=== PATIENT | male | born 1940 | race Caucasian/White ===

== ENCOUNTER 2025-02-18 12:14 | Inpatient (IN) ==
--- NOTE | 2025-02-18 12:36 | Emergency Department Note ---
Impression & Plan Difficulty with speech ED Provider Note Name: DEEPTHI ERNST Age: 84 Sex: Male Arrives Via: Ambulance Informant: Patient, EMS, nursing staff, family ED Provider: Román Covarrubias MD Chief Complaint: Speech difficulty Impression: As per impressions above Medical Decision Makin-year-old pleasant gentleman arrives for evaluation of strokelike symptoms. He was on his way to being seen at an appointment here when he was noted to be having difficulty with speaking. Primarily word finding issues with a bit of slurred speech. On arrival patient initially was 0 symptoms. Throughout the course of his ER stay symptoms did seem to wax and wane a bit depending on his position. Given initial unclear onset but also the waxing and waning limited other symptoms I do not feel that TNKase would be indicated. This is further complicated by the fact that he is chronically on Xarelto and had actually not taken it last night though initially said that he was only missing today's dose. Fortunately workup is relatively unremarkable and I did obtain a CT angiography of the head and neck. It is somewhat unclear the exact etiology but I do believe he needs to come in for further stroke workup. I will note that on examination patient appears a bit on the dehydrated side and thus I felt that IV fluids were indicated. Given the concern for underlying possible stroke I did opt to give him aspirin 324 mg p.o. I will note that he has no evidence of difficulty with swallowing or breathing. Triage/Nursing Notes reviewed by Me Differential:Stroke, exhaustion, dehydration, TIA, seizure, infection, electrolyte imbalance, ICH, amongst many others Vital Signs: reviewed and remarkable for mildly hypertensive on arrival Interventions: Normal saline bolus, aspirin p.o. Labs:ED labs Reviewed by me and remarkable for no significant abnormalities Imaging:CT of the head without contrast as per my informal interpretation no intracranial hemorrhage or mass effect appreciated. CT angiography of the head and neck as per radiologist no acute occlusive disease appreciated. EKG:As per my interpretation. Indication strokelike symptoms. Atrial fibrillation at 77 bpm and a QTc of 434. There is no ectopy no ischemia. There are no previous EKGs for comparison. Cardiac/Tele Monitoring: Cardiac Monitoring: An Order was placed for continuous cardiac monitoring. The monitor shows a rate of 70 with a A-fib rhythm. Consults:discussed with hospital service who will further evaluate and manage. Plan: Disposition:Hospitalization. Condition: Fair History of Present Illness: 84-year-old gentleman arrives for evaluation of strokelike symptoms. Patient was being seen at audiology appointment this morning when he was having trouble finding words. Symptoms waxed and waned a bit. He was brought to the ER for further evaluation. Patient notes that he otherwise feels fine. He is noting that at times he has trouble finding the right words to say. Denies any other weakness. No falls, trauma, injuries. He is not having a headache neck pain visual changes. He has not been having any difficulty with breathing. He denies any current chest pain, palpitations, abdominal pain, urinary/bowel symptoms, leg swelling or other concerning signs or symptoms. No medications prior to arrival. Patient does have a history of A-fib. He is on Xarelto. He had his morning dose of Xarelto held as he was going to have a procedure but he has had his Xarelto otherwise every single day up until this morning. Past Medical History: Atrial fibrillation, anxiety, type 2 diabetes, GERD, BPH, hypertension Home Medications:See Below Allergies: Penicillin Vitals:Blood Pressure: 164/95, Pulse 81, RR 20, T 36.6C, O2 97% on RA Physical Exam: GENERAL: Patient is anxious appearing and in mild distress. RESPIRATORY: No dyspnea. Clear to auscultation and equal bilaterally. CARDIOVASCULAR: Irregular.No murmur appreciated. EXTREMITIES: Normal motion all extremities, no cyanosis, no edema. NEUROLOGIC: Alert and oriented. No focal neurologic deficits appreciated SKIN: No rash, no jaundice, no diaphoresis. PSYCH: Appropriate GCS: 15 ED Course: Times/Reassessments: Multiple repeat evaluations. Patient does seem to have waxing and waning difficulty with speech but it is almost positional in nature. He and family are comfortable with plan to stay in hospital for further workup and evaluation. Román Covarrubias MD Past Med/Surg History Problem List (Updated 02/20/25 @ 12:04 by Román Covarrubias MD) Difficulty with speech (Acute) TIA (transient ischemic attack) Valvular heart disease Dysarthria Medical History (Updated 02/20/25 @ 12:04 by Román Covarrubias MD) Anxiety Sensorineural hearing loss of both ears Degenerative joint disease BPH (benign prostatic hyperplasia) Constipation Infrarenal abdominal aortic aneurysm (AAA) without rupture Right bundle branch block Coronary artery calcification Mitral regurgitation Tricuspid regurgitation Atrial septal aneurysm Hypertension Atrial flutter Chronic atrial fibrillation Ascending aorta dilation Enlargement of abdominal aorta Aortic valve sclerosis Laryngopharyngeal reflux disease ROBBY on CPAP Dyslipidemia Type 2 diabetes mellitus Surgical History (Updated 02/18/25 @ 16:01 by SANFORD Frank) History of tonsillectomy History of cataract surgery History of colonoscopy Social History Smoking Status: Former smoker Hx Alcohol Use: No Hx Substance Use: No Preferred Language: Maltese Communication Ability: Effective Aerobics Teacher Required: No Beliefs That Will Affect Care: None Current Living Situation: Spouse Feels Safe at Home: Yes Assistive Devices: None Allergies Allergies Allergy/AdvReac Type Severity Reaction Status Date / Time adhesive tape Allergy Unknown Unknown Unverified 02/18/25 15:14 atorvastatin Allergy Unknown Unknown Unverified 02/18/25 15:14 Penicillins Allergy Unknown Unknown Unverified 02/18/25 15:14 Home Meds Home Medications Medication Instructions Recorded Confirmed Probiotic 1 cap PO DAILY 02/18/25 02/18/25 buspirone 5 mg tablet 5 mg PO BID 02/18/25 02/18/25 diltiazem HCl 240 mg capsule,24 240 mg PO DAILY 02/18/25 02/18/25 hr,extended release (Tiadylt ER) diphenhydramine 25 1 tab PO HS 02/18/25 02/18/25 mg-acetaminophen 500 mg tablet (Tylenol PM Extra Strength) dutasteride 0.5 mg capsule 0.5 mg PO DAILY 02/18/25 02/18/25 famotidine 40 mg tablet 40 mg PO HS 02/18/25 02/18/25 furosemide 20 mg tablet 20 mg PO BID 02/18/25 02/18/25 loratadine 10 mg tablet 10 mg PO DAILY 02/18/25 02/18/25 lorazepam 0.5 mg tablet 0.5 mg PO TID PRN Anxiety 02/18/25 02/18/25 melatonin 10 mg tablet 10 mg PO HS 02/18/25 02/18/25 metformin 500 mg tablet 500 mg PO BID 02/18/25 02/18/25 mirabegron 25 mg tablet,extended 25 mg PO DAILY 02/18/25 02/18/25 release 24 hr (Myrbetriq) omeprazole 40 mg capsule,delayed 40 mg PO BID 02/18/25 02/18/25 release polyethylene glycol 3350 17 17 g PO DAILY 02/18/25 02/18/25 gram/dose oral powder (Miralax) tamsulosin 0.4 mg capsule 0.4 mg PO DAILY 02/18/25 02/18/25 tobramycin 0.3 %-dexamethasone 0.1 0 drp OPL TID 02/18/25 02/18/25 % eye drops,suspension Previous Rx's Medication Instructions Recorded rivaroxaban 15 mg tablet (Xarelto) 15 mg PO DAILY@1600 #30 tabs 02/19/25 rosuvastatin 20 mg tablet 20 mg PO DAILY #30 tabs 02/19/25 Results & Data (ED) Vital Signs Vital Signs - 24 hr 02/18/25 12:28 Temperature 36.6 C Temperature Source Oral Pulse Rate 81 Respiratory Rate 20 Blood Pressure 164/95 H Blood Pressure Mean 118 Blood Pressure Position Sitting Pulse Oximetry 97 Oxygen Delivery Method Room Air Sepsis Recent Fever Within 48 Hours No Sepsis New/Unexplained Change in Mental Status No Sepsis Action Taken by Nursing No Action Required Laboratory Data 02/19/25 06:38 02/19/25 06:38 Lab Results 02/18/25 Range/Units 12:33 WBC 4.90 (4.8-10.8) K/ul RBC 3.81 L (4.70-6.10) M/uL Hgb 12.4 L (14.0-18.0) g/dl Hct 37.9 L (42.0-52.0) % MCV 99.5 (80.0-100.0) fL MCH 32.5 (25.0-34.0) pg MCHC 32.7 (32.0-36.0) g/dL RDW Std Deviation 45.3 (36.4-46.3) fL RDW Coeff of Kam 12.4 (11.5-14.5) % Plt Count 145 (130-400) K/uL MPV 9.8 (9.4-12.4) fL Immature Gran % (Auto) 0.4 % Neut % (Auto) 74.1 % Lymph % (Auto) 15.1 % [place] % (Auto) 9.6 % Eos % (Auto) 0.6 % Baso % (Auto) 0.2 % Neut # (Auto) 3.63 (1.40-6.50) K/uL Lymph # (Auto) 0.74 L (1.20-3.40) K/uL [place] # (Auto) 0.47 (0.11-0.59) K/uL Eos # (Auto) 0.03 (0.00-0.50) K/uL Baso # (Auto) 0.01 (0.00-0.20) K/uL Immature Gran # (Auto) 0.02 (0.01-0.20) K/uL PT 11.2 (9.0-12.0) Seconds INR 1.1 (0.9-1.1) APTT 27 (21-31) Seconds PTT Ratio 1.0 Sodium 140 (136-145) mmol/L Potassium 4.0 (3.5-5.1) mmol/L Chloride 102 (98-107) mmol/L Carbon Dioxide 30 (21-32) mmol/L Anion Gap 8 (3-11) BUN 21 (6-23) mg/dl Creatinine 1.23 (0.6-1.4) mg/dl Est Cr Clr Drug Dosing 48.2 ml/min eGFR 57.53 BUN/Creatinine Ratio 17.1 (10-20) Glucose 85 (70-99(Fasting)) mg/dl Calcium 9.4 (8.6-10.3) mg/dl Magnesium 2.0 (1.7-2.4) mg/dl Total Bilirubin 0.7 (0.2-1.0) mg/dl AST 14 (13-39) U/L ALT 9 (7-52) U/L Alkaline Phosphatase 69 (34-104) U/L Troponin I High Sens 6.4 (0-20) pg/ml Total Protein 6.8 (6.0-8.3) gm/dl Albumin 4.0 (3.4-5.0) gm/dl Globulin 2.8 (2.5-4.0) gm/dl Albumin/Globulin Ratio 1.4 (0.9-2) Administered Medications Discontinued Medications Acetaminophen (Acetaminophen 500 Mg Tab) 500 mg PO HS KEVIN Stop: 03/20/25 20:59 Last Admin: 02/18/25 20:14 Dose: 500 mg Documented By: DAVID Aspirin (Aspirin 81 Mg Chew) 324 mg PO NOW STA Stop: 02/18/25 14:05 Last Admin: 02/18/25 17:09 Dose: Not Given Documented By: negrito Aspirin (Aspirin 81 Mg Ectab) [facility] Stop: 03/21/25 08:59 Last Admin: 02/19/25 09:11 Dose: 81 mg Documented By: ROBBIE Buspirone HCl (Buspirone 5 Mg Tab) 5 mg PO BID [facility] Stop: 03/20/25 20:59 Last Admin: 02/19/25 09:11 Dose: 5 mg Documented By: Admin: 02/18/25 20:08 Dose: 5 mg Documented By: DAVID Diltiazem HCl (Diltiazem Hcl 240 Mg Capcr) 240 mg PO DAILY [facility] Stop: 03/21/25 08:59 Last Admin: 02/19/25 09:12 Dose: 240 mg Documented By: ROBBIE Diphenhydramine HCl (Diphenhydramine Capsule 25 Mg Cap) 25 mg PO [facility] Stop: 03/20/25 20:59 Last Admin: 02/18/25 20:08 Dose: 25 mg Documented By: DAVID Famotidine (Famotidine 40 Mg Tablet) 40 mg PO [facility] Stop: 03/20/25 20:59 Last Admin: 02/18/25 20:08 Dose: 40 mg Documented By: DAVID Finasteride (Finasteride 5 Mg Tab) 5 mg PO DAILY [facility]; Protocol Stop: 03/21/25 08:59 Last Admin: 02/19/25 09:12 Dose: 5 mg Documented By: ROBBIE Gadobutrol (Gadobutrol 65ml Vial) 9 ml IV ONCE ONE Stop: 02/19/25 00:47 Last Admin: 02/19/25 00:47 Dose: 9 ml Documented By: KYREE Sodium Chloride (Nss) 1,000 mls @ 999 mls/hr IV .Q1H1M ONE Stop: 02/18/25 13:35 Last Infusion: 02/18/25 16:04 Dose: Infused Documented By: negrito Admin: 02/18/25 12:52 Dose: 999 mls/hr Documented By: QGV Insulin Aspart (Insulin Aspart Per Unit Charge) 0 units SC ACHS [facility] Stop: 03/20/25 18:59 Last Admin: 02/19/25 12:58 Dose: Not Given Documented By: Admin: 02/19/25 09:11 Dose: Not Given Documented By: Admin: 02/18/25 21:01 Dose: Not Given Documented By: DAVID Co-signed By: KASSANDRA Admin: 02/18/25 19:41 Dose: Not Given Documented By: DAVID Co-signed By: KASSANDRA Ioversol (Optiray 320 125ml) 112 ml IV ONCE ONE Stop: 02/18/25 12:45 Last Admin: 02/18/25 12:44 Dose: 112 ml Documented By: KATY Lactobacillus Acidophilus (Advanced Probiotic 625 Mg Capsule) 1,250 mg PO DAILY [facility] Stop: 03/21/25 08:59 Last Admin: 02/19/25 09:12 Dose: 1,250 mg Documented By: ROBBIE Loratadine (Loratadine 10 Mg Tab) 10 mg PO DAILY [facility] Stop: 03/21/25 08:59 Last Admin: 02/19/25 09:12 Dose: 10 mg Documented By: ROBBIE Lorazepam (Lorazepam 0.5 Mg Tab) 0.5 mg PO TID PRN PRN Reason: Anxiety Stop: 03/20/25 18:45 Last Admin: 02/19/25 10:05 Dose: 0.5 mg Documented By: Admin: 02/18/25 21:31 Dose: 0.5 mg Documented By: DAVID Melatonin (Melatonin 3 Mg Tab) 9 mg PO HS [facility]; Protocol Stop: 03/20/25 20:59 Last Admin: 02/18/25 20:09 Dose: 9 mg Documented By: DAVID Pantoprazole Sodium (Pantoprazole 40 Mg Tab) 40 mg PO BID [facility]; Protocol Stop: 03/20/25 20:59 Last Admin: 02/19/25 09:12 Dose: 40 mg Documented By: Admin: 02/18/25 20:10 Dose: 40 mg Documented By: DAVID Polyethylene Glycol (Polyethylene (Miralax) 17 Gm Pack) 17 gm PO DAILY [facility] Stop: 03/21/25 08:59 Last Admin: 02/19/25 09:18 Dose: 17 gm Documented By: ROBBIE Rivaroxaban (Rivaroxaban 20 Mg Tab) 20 mg PO DAILY@1600 KEVIN Stop: 03/20/25 19:14 Last Admin: 02/18/25 20:08 Dose: 20 mg Documented By: DAVID Rosuvastatin Calcium (Rosuvastatin Calcium 10 Mg Tab) 10 mg PO DAILY [facility] Stop: 03/21/25 08:59 Last Admin: 02/19/25 09:12 Dose: 10 mg Documented By: ROBBIE Tamsulosin HCl (Tamsulosin Hcl 0.4 Mg Cap) 0.4 mg PO DAILY [facility] Stop: 03/21/25 08:59 Last Admin: 02/19/25 09:12 Dose: 0.4 mg Documented By: ROBBIE Vibegron (Vibegron 75 Mg Tab) 75 mg PO DAILY [facility]; Protocol Stop: 03/21/25 08:59 Last Admin: 02/19/25 09:12 Dose: 75 mg Documented By: ROBBIE Discharge Plan Visit Data Chief Complaint: TIA Symptoms ED Provider: Román Covarrubias Discharge Problem: Difficulty with speech Patient Disposition: Admitted As Inpatient Condition: Fair Discharge Instructions Interventions: ED Discharge Assessment Last Done: 02/18/25 18:13
[2025-02-18] MEDS: OPTIRAY 320 125ml IV ONE (12:44)
[2025-02-18] MEDS: SODIUM CHLORIDE 0.9% 1,000 ML IV ONE (12:52)
[2025-02-18 12:54] LABS: Hematocrit (blood only) 37.9 % (42.0-52.0); Hemoglobin 12.4 g/dl (14.0-18.0); Immature Granulocytes # (auto) 0.02 K/uL (0.01-0.20); Immature Granulocytes % (auto) 0.4 %; Mean Corpuscular Hemoglobin 32.5 pg (25.0-34.0); Mean Corpuscular Volume 99.5 fL (80.0-100.0); Platelet Count 145 K/uL (130-400); RDW Standard Deviation 45.3 fL (36.4-46.3); Red Blood Count 3.81 M/uL (4.70-6.10); White Blood Count 4.90 K/ul (4.8-10.8)
--- NOTE | 2025-02-18 12:58 | CT Scan Report ---
CT SCAN OF THE BRAIN WITHOUT IV CONTRAST CLINICAL HISTORY: Neuro deficit. Suspected acute stroke. COMPARISON STUDY: TECHNIQUE: Unenhanced axial CT scan of the brain was performed from the vertex to the skull base. A dose lowering technique was utilized adhering to the principles of ALARA. CT DOSE: FINDINGS: No intra or extra-axial mass lesions are visualized. There is no CT evidence of acute cortical infarc tion. [place]-white differentiation remains intact. There is no evidence of acute hemorrhage. There is n o hydrocephalus. There are mild atrophic changes. There are mild ventricular white matter hypodensiti es likely on a small vessel basis. Incidental note is made of mucosal thickening within the maxillary sinuses. Postsurgical changes are present involving the medial snyder of both maxillary sinuses. No calvarial fractures are visualized. IMPRESSION: No acute intracranial findings. ACT 112: Negative or not required by law. Electronically signed by: Eliezer Daily M.D. 02/18/2025 12:57 PM
--- NOTE | 2025-02-18 13:03 | CT Scan Report ---
CT ANGIOGRAM OF THE NECK CLINICAL HISTORY: Neurological deficit. Stroke like symptoms. COMPARISON STUDY: No priors TECHNIQUE: Following the IV administration of 112 of Optiray 320, CT angiogram of the neck was perfor med from the aortic arch to the skull base. Images are reviewed in the axial, sagittal, and coronal p lanes. 3-D MIPS images are created and assessed. IV contrast was administered without complication. A ll measurements were calculated based on NASCET criteria. A dose lowering technique was utilized adh ering to the principles of ALARA. CT DOSE: 1256.73 mGy.cm FINDINGS: Thoracic aorta: There is atherosclerotic calcification of the thoracic aorta. Visualized portions of the thoracic aorta are normal in caliber. The aortic arch demonstrates bovine variant anatomy. Right carotid arterial system: The right common carotid artery is widely patent, as are the right int ernal and external carotid arteries. Calcified plaque is noted in the carotid bulb. Left carotid arterial system: The left common carotid artery is widely patent, as are the left international marketing coordinator al and external carotid arteries. Calcified plaque is seen in the carotid bulb. Vertebral arteries: Widely patent bilaterally and codominant in the neck. Subclavian arteries: Patent bilaterally. Intracranial vasculature: The visualized intracranial vessels at the skull base are patent. Jugular veins: Patent bilaterally. Brain parenchyma: The visualized brain parenchyma the skull base is within normal limits. Lung apices: Emphysematous change is seen at the apices. The imaged upper lobe lung parenchyma otherw ise appears clear. Soft tissues: The visualized pharyngeal soft tissues are normal in appearance noting angiographic pha se technique. The oropharyngeal airway appears widely patent. The salivary and thyroid glands are nor mal in appearance. No cervical lymphadenopathy is seen. Skeletal structures: The skeletal structures are osteopenic. The visualized calvarium at the skull ba se appears intact. The imaged cervical spine is maintained noting multilevel spondylosis. Sinuses and mastoids: The visualized paranasal sinuses are clear. The mastoid air cells are well pneu matized. IMPRESSION: 1. Unremarkable CT angiogram of the neck. 2. Emphysema. ACT 112: Negative or not required by law. Electronically signed by: Storm Mckenna M.D. 02/18/2025 1:01 PM
--- NOTE | 2025-02-18 13:03 | CT Scan Report ---
CTA ANGIOGRAPHY OF THE HEAD CLINICAL HISTORY: neuro deficit, acute stroke suspected COMPARISON STUDY: No previous studies for comparison. TECHNIQUE: Helical axial images of the head were obtained following uneventful intravenous administr ation of 112 cc of Optiray. Sagittal and coronal reconstructions were viewed as well as maximal inten sity projections on an independent 3-D workstation. Automated exposure control was utilized for the study. A dose lowering technique was utilized adhering to the principles of ALARA. CT DOSE: FINDINGS: There are no lesion suspicious for aneurysm. There are no major intracranial branch occlusi ons. The dural venous sinuses appear patent. There is mucosal thickening within both maxillary sinuses. There are postsurgical changes of bilatera l medial antrectomies. IMPRESSION: 1. No evidence of aneurysm. No evidence of major intracranial branch occlusion. ACT 112: Negative or not required by law. Electronically signed by: Eliezer Daily M.D. 02/18/2025 1:01 PM
[2025-02-18 13:09] LABS: Alanine Aminotransferase 9.0 U/L (7-52); Albumin Globulin Ratio 1.4 (0.9-2); Albumin Level 4.0 gm/dl (3.4-5.0); Alkaline Phosphatase 69.0 U/L (34-104); Anion Gap 8.0 (3-11); Bilirubin,Total 0.7 mg/dl (0.2-1.0); Blood Urea Nitrogen 21.0 mg/dl (6-23); Calcium 9.4 mg/dl (8.6-10.3); Carbon Dioxide 30.0 mmol/L (21-32); Chloride 102.0 mmol/L (98-107); Creatinine Clr Calc Pharmacy 48.2 ml/min; Globulin 2.8 gm/dl (2.5-4.0); Glucose 85.0 mg/dl (70-99(Fasting)); Magnesium 2.0 mg/dl (1.7-2.4); Potassium 4.0 mmol/L (3.5-5.1); Sodium 140.0 mmol/L (136-145); Total Protein 6.8 gm/dl (6.0-8.3)
[2025-02-18 13:26] LABS: INR 1.1 (0.9-1.1); Partial Thromboplastin Time 27 Seconds (21-31); Prothrombin Time 11.2 Seconds (9.0-12.0)
--- NOTE | 2025-02-18 14:30 | History & Physical Report ---
Date of Service February 18, 2025 Assessment & Plan (1) Dysarthria: (2) Type 2 diabetes mellitus: (3) Valvular heart disease: (4) Dyslipidemia: (5) ROBBY on CPAP: (6) Laryngopharyngeal reflux disease: (7) Chronic atrial fibrillation: (8) Hypertension: (9) Infrarenal abdominal aortic aneurysm (AAA) without rupture: (10) BPH (benign prostatic hyperplasia): (11) Anxiety: Plan 84 year old male with PMH significant for type 2 diabetes, dyslipidemia, ROBBY on CPAP, laryngopharyngeal reflux disease, chronic a fib, valvular heart disease, enlargement of abdominal aorta, ascending aorta dilation, hypertension, BPH, constipation, and anxiety who presents to the ED on 02/18/2025 with slurred speech. Dysarthria Stroke vs TIA Patient presenting with dysarthria and expressive aphasia that is waxing/waning Head CT, head CTA, neck CTA all unremarkable Received ASA in ED MRI ordered Consult neurology: appreciate recs Obtain echo (TTE earlier this month revealed LVEF 60-64%, RV mod dilation, LA severe enlargement, RA mod enlargement, diastolic dysfunction, mild aortic valve sclerosis, mild MR, mild TR, mod CA, mild enlargement of aortic root and proximal ascending aorta) PT/OT/ST evals A1C and lipid panel in am Monitor on telemetry Type 2 diabetes Hold home metformin BSG ACHS and SSI while inpatient Chronic atrial fibrillation Rate controlled Continue Xarelto and diltiazem Hypertension Continue lasix Dyslipidemia Continue rosuvastatin ROBBY on CPAP CPAP HS Esophageal dysphagia LPRD Follows with [facility] Was supposed to have EGD with dilation at [facility] tomorrow-> will need rescheduled Continue PPI and pepcid AAA Follows with [facility] Stable under surveillance with yearly ultrasound BPH Continue dutasteride and tamsulosin Anxiety Continue buspirone and ativan PRN DVT Prophylaxis:on Xarelto Code Status: DNR/DNI - As per discussion at bedside with the patient. PCP: Shelbie Welch Disposition: admit to [facility] Patient seen in collaboration with Dr. Denis. Please see addendum. I spent a total of 70 minutes coordinating, documenting and providing care for this patient excluding time spent in the performance of separately billed ser vices or time spent by another provider/QHP. Admission and Anticipated Discharge Date Admission Date: February 18, 2025 History of Present Illness Chief Complaint: slurred speech Primary Care Provider: NO PCP 84 year old male with PMH significant for type 2 diabetes, dyslipidemia, ROBBY on CPAP, laryngopharyngeal reflux disease, chronic a fib, valvular heart disease, enlargement of abdominal aorta, ascending aorta dilation, hypertension, BPH, constipation, and anxiety who presents to the ED on 02/18/2025 with slurred speech. Patient reports that he was going to the [facility] this morning at 1100 to get new hearing aids when he suddenly felt off balance and "wobbly" getting out of the car. He was able to get through the appointment and then when he got up to leave, he had a similar sensation of off balance. Denies near syncope or syncope. He then developed dysarthria and slurred speech where he describes that he knows what he was trying to say but could not get the words out. [facility] and [facility] brought [facility] for evaluation. By the time he arrived to the ED, his speech normalized. He continues to have waxing and waning expressive aphasia for about 5-10 min at a time every 10-20 minutes. Patient feels completely fine otherwise. Denies headache, blurry vision, unilateral weakness, chest pain, SOB, abdominal pain, N/V/D. He notes that he did not take his Xarelto (for A fib) last evening because he is supposed to have an EGD with dilation tomorrow at [facility]. Allergies Allergy/AdvReac Type Severity Reaction Status Date / Time adhesive tape Allergy Unknown Unknown Unverified 02/18/25 15:14 atorvastatin Allergy Unknown Unknown Unverified 02/18/25 15:14 Penicillins Allergy Unknown Unknown Unverified 02/18/25 15:14 Home Medications Medication Instructions Recorded Confirmed Type Probiotic 1 cap PO DAILY 02/18/25 02/18/25 History buspirone 5 mg tablet 5 mg PO BID 02/18/25 02/18/25 History diltiazem HCl 240 mg capsule,24 240 mg PO DAILY 02/18/25 02/18/25 History hr,extended release (Tiadylt ER) diphenhydramine 25 1 tab PO HS 02/18/25 02/18/25 History mg-acetaminophen 500 mg tablet (Tylenol PM Extra Strength) dutasteride 0.5 mg capsule 0.5 mg PO DAILY 02/18/25 02/18/25 History famotidine 40 mg tablet 40 mg PO HS 02/18/25 02/18/25 History furosemide 20 mg tablet 20 mg PO BID 02/18/25 02/18/25 History loratadine 10 mg tablet 10 mg PO DAILY 02/18/25 02/18/25 History lorazepam 0.5 mg tablet 0.5 mg PO TID PRN Anxiety 02/18/25 02/18/25 History melatonin 10 mg tablet 10 mg PO HS 02/18/25 02/18/25 History metformin 500 mg tablet 500 mg PO BID 02/18/25 02/18/25 History mirabegron 25 mg tablet,extended 25 mg PO DAILY 02/18/25 02/18/25 History release 24 hr (Myrbetriq) omeprazole 40 mg capsule,delayed 40 mg PO BID 02/18/25 02/18/25 History release polyethylene glycol 3350 17 17 g PO DAILY 02/18/25 02/18/25 History gram/dose oral powder (Miralax) rivaroxaban 20 mg tablet (Xarelto) 20 mg PO DAILY 02/18/25 02/18/25 History rosuvastatin 5 mg tablet 10 mg PO DAILY 02/18/25 02/18/25 History tamsulosin 0.4 mg capsule 0.4 mg PO DAILY 02/18/25 02/18/25 History tobramycin 0.3 %-dexamethasone 0.1 0 drp OPL TID 02/18/25 02/18/25 History % eye drops,suspension Past Med/Surg History Problem List (Updated 02/18/25 @ 16:01 by SANFORD Frank) Valvular heart disease Dysarthria Medical History (Updated 02/18/25 @ 16:01 by SANFORD Frank) Anxiety Sensorineural hearing loss of both ears Degenerative joint disease BPH (benign prostatic hyperplasia) Constipation Infrarenal abdominal aortic aneurysm (AAA) without rupture Right bundle branch block Coronary artery calcification Mitral regurgitation Tricuspid regurgitation Atrial septal aneurysm Hypertension Atrial flutter Chronic atrial fibrillation Ascending aorta dilation Enlargement of abdominal aorta Aortic valve sclerosis Laryngopharyngeal reflux disease ROBBY on CPAP Dyslipidemia Type 2 diabetes mellitus Surgical History (Updated 02/18/25 @ 16:01 by SANFORD Frank) History of tonsillectomy History of cataract surgery History of colonoscopy Social History Smoking Status: Former smoker Preferred Language: Chinese Feels Safe at Home: Yes Review of Systems Review of Systems: All systems reviewed & are unremarkable except as noted in HPI & below Physical Exam Physical Exam: Refer to exam by Dr. Denis Results & Data Results & Data Vital Signs (Past 12 Hours) Vital Signs Temp Pulse Resp BP Pulse Ox O2 Del Method 02/18/25 13:36 75 02/18/25 12:28 36.6 C 81 20 164/95 H 97 Room Air Laboratory Results Short CBC 02/18/25 Range/Units 12:33 WBC 4.90 (4.8-10.8) K/ul Hgb 12.4 L (14.0-18.0) g/dl Hct 37.9 L (42.0-52.0) % Plt Count 145 (130-400) K/uL BMP 02/18/25 12:33 Sodium 140 Potassium 4.0 Chloride 102 Carbon Dioxide 30 BUN 21 Creatinine 1.23 Glucose 85 Calcium 9.4 Liver Function 02/18/25 Range/Units 12:33 Total Bilirubin 0.7 (0.2-1.0) mg/dl AST 14 (13-39) U/L ALT 9 (7-52) U/L Alkaline Phosphatase 69 (34-104) U/L Albumin 4.0 (3.4-5.0) gm/dl I have independently reviewed and interpreted patient's admitting labs including CBC, CMP, PTT, PT/INR, mag and troponin. Diagnostic Findings Head CT 02/18/25 12:35 CT SCAN OF THE BRAIN WITHOUT IV CONTRAST CLINICAL HISTORY: Neuro deficit. Suspected acute stroke. COMPARISON STUDY: TECHNIQUE: Unenhanced axial CT scan of the brain was performed from the vertex to the skull base. A dose lowering technique was utilized adhering to the principles of ALARA. CT DOSE: FINDINGS: No intra or extra-axial mass lesions are visualized. There is no CT evidence of acute cortical infarction. [place]-white differentiation remains intact. There is no evidence of acute hemorrhage. There is no hydrocephalus. There are mild atrophic changes. There are mild ventricular white matter hypodensities likely on a small vessel basis. Incidental note is made of mucosal thickening within the maxillary sinuses. Postsurgical changes are present involving the medial snyder of both maxillary sinuses. No calvarial fractures are visualized. IMPRESSION: No acute intracranial findings. ACT 112: Negative or not required by law. Electronically signed by: Eliezer Daily M.D. 02/18/2025 12:57 PM Head CTA 02/18/25 12:35 CTA ANGIOGRAPHY OF THE HEAD CLINICAL HISTORY: neuro deficit, acute stroke suspected COMPARISON STUDY: No previous studies for comparison. TECHNIQUE: Helical axial images of the head were obtained following uneventful intravenous administration of 112 cc of Optiray. Sagittal and coronal reconstructions were viewed as well as maximal intensity projections on an independent 3-D workstation. Automated exposure control was utilized for the study. A dose lowering technique was utilized adhering to the principles of ALARA. CT DOSE: FINDINGS: There are no lesion suspicious for aneurysm. There are no major intracranial branch occlusions. The dural venous sinuses appear patent. There is mucosal thickening within both maxillary sinuses. There are postsurgical changes of bilateral medial antrectomies. IMPRESSION: 1. No evidence of aneurysm. No evidence of major intracranial branch occlusion. ACT 112: Negative or not required by law. Electronically signed by: Eliezer Daily M.D. 02/18/2025 1:01 PM Neck CTA 02/18/25 12:35 CT ANGIOGRAM OF THE NECK CLINICAL HISTORY: Neurological deficit. Stroke like symptoms. COMPARISON STUDY: No priors TECHNIQUE: Following the IV administration of 112 of Optiray 320, CT angiogram of the neck was performed from the aortic arch to the skull base. Images are reviewed in the axial, sagittal, and coronal planes. 3-D MIPS images are created and assessed. IV contrast was administered without complication. All measurements were calculated based on NASCET criteria. A dose lowering technique was utilized adhering to the principles of ALARA. CT DOSE: 1256.73 mGy.cm FINDINGS: Thoracic aorta: There is atherosclerotic calcification of the thoracic aorta. Visualized portions of the thoracic aorta are normal in caliber. The aortic arch demonstrates bovine variant anatomy. Right carotid arterial system: The right common carotid artery is widely patent, as are the right internal and external carotid arteries. Calcified plaque is noted in the carotid bulb. Left carotid arterial system: The left common carotid artery is widely patent, as are the left internal and external carotid arteries. Calcified plaque is seen in the carotid bulb. Vertebral arteries: Widely patent bilaterally and codominant in the neck. Subclavian arteries: Patent bilaterally. Intracranial vasculature: The visualized intracranial vessels at the skull base are patent. Jugular veins: Patent bilaterally. Brain parenchyma: The visualized brain parenchyma the skull base is within normal limits. Lung apices: Emphysematous change is seen at the apices. The imaged upper lobe lung parenchyma otherwise appears clear. Soft tissues: The visualized pharyngeal soft tissues are normal in appearance noting angiographic phase technique. The oropharyngeal airway appears widely patent. The salivary and thyroid glands are normal in appearance. No cervical lymphadenopathy is seen. Skeletal structures: The skeletal structures are osteopenic. The visualized calvarium at the skull base appears intact. The imaged cervical spine is maintained noting multilevel spondylosis. Sinuses and mastoids: The visualized paranasal sinuses are clear. The mastoid air cells are well pneumatized. IMPRESSION: 1. Unremarkable CT angiogram of the neck. 2. Emphysema. ACT 112: Negative or not required by law. Electronically signed by: Storm Mckenna M.D. 02/18/2025 1:01 PM ECG Additional Comments: I have independently reviewed and interpreted patient's admitting EKG which revealed: A fib at a rate of 77bpm Code Status & VTE Plan Code Status DNR/DNI Supervising Physician Co-Signing Physician Notes Pt seen and examined by me, care coordinated w/ SANFORD Corral. pls refer to her note above for further detail. 84 yo M with type 2 diabetes, dyslipidemia, ROBBY, laryngopharyngeal reflux disease, chronic a fib, valvular heart disease, enlargement of abdominal aorta, hypertension, BPH, constipation, and anxiety who presents with slurred speech and feeling "wobbly" on and off. Patient reports that [facility] was [facility] to get new [facility] when he suddenly felt off balance and "wobbly" getting out of the car. He then developed dysarthria and slurred speech where he describes that he knows what he was trying to say but could not get the words out. By the time he arrived to the ED, his speech normalized. He continues to have waxing and waning expressive aphasia for about 5-10 min at a time every 10-20 minutes - per pt's son who is present at the bedside and helps provide the history. Patient feels well otherwise. Denies headache, blurry vision, any weakness, chest pain, SOB, abdominal pain, N/V/D. He notes that he did not take his Xarelto (for A fib) last evening because he is supposed to have an EGD with dilation tomorrow at [facility]. On our evaluation, pt is able to answer questions appropriately, he is awake, and alert. Heart sounds irregular. Lung sounds clear. Abdomen soft nontender. No LE edema, and pt is able to move all extremities without any difficulty or weakness noted. Pt denies any numbness or tingling. Cranial nerves checked at the bedside and intact. CT head, CTA head and neck obtained in ED and unremarkable. Pt received ASA in ED. Will resume xarelto, cont. home statin for now. Will obtain fasting panel, Hgb A1c. Will obtain brain MRI and will discuss further w/ neurology. MD Cira
[2025-02-18] MEDS: ASPIRIN 81 MG CHEW PO STA (17:09)
[2025-02-18] MEDS ORDERED: GLUCOSE 10 TAB/TUBE PO PRN (18:46)
[2025-02-18] MEDS ORDERED: GLUCOSE 40% GEL 15 GM TUBE PO PRN (18:46)
[2025-02-18] MEDS ORDERED: ONDANSETRON INJ 2 MG/ML 2 ML VIAL IV PRN (18:46)
[2025-02-18] MEDS ORDERED: DEXTROSE 50% 50 ML SYRINGE IV PRN (18:46)
[2025-02-18] MEDS ORDERED: CARBOHYDRATES FOR HYPOGLYCEMIA PO PRN (18:46)
[2025-02-18] MEDS ORDERED: ACETAMINOPHEN 325 MG TAB PO PRN (18:46)
[2025-02-18] MEDS ORDERED: GLUCAGON FOR INJ 1 MG VIAL SQ PRN (18:46)
[2025-02-18] MEDS ORDERED: PHARMACIST DISCHARGE MED REC CONSULT PRN (18:46)
[2025-02-18] MEDS: INSULIN ASPART PER UNIT CHARGE SC SCH (19:41)
[2025-02-18] MEDS: busPIRone 5 MG TAB PO SCH (20:08)
[2025-02-18] MEDS: RIVAROXABAN 20 MG TAB PO SCH (20:08)
[2025-02-18] MEDS: diphenhydrAMINE Capsule 25 MG CAP PO SCH (20:08)
[2025-02-18] MEDS: FAMOTIDINE 40 MG TABLET PO SCH (20:08)
[2025-02-18] MEDS: MELATONIN 3 MG TAB PO SCH (20:09)
[2025-02-18] MEDS: ACETAMINOPHEN 500 MG TAB PO SCH (20:14)
--- NOTE | 2025-02-18 21:01 | Electrocardiogram Report ---
Test Reason : Blood Pressure : */* mmHG Vent. Rate : 77 BPM Atrial Rate : * BPM P-R Int : * ms QRS Dur : 136 ms QT Int : 384 ms P-R-T Axes : * 73 5 degrees QTcB Int : 434 ms Atrial fibrillation Right bundle branch block Abnormal ECG No previous ECGs available Confirmed by Cleveland Jean ([id number]) on 02/18/2025 9:01:32 PM Referred By: Confirmed By: Cleveland Jean
[2025-02-18] MEDS: LORazepam 0.5 MG TAB PO PRN (21:31)
[2025-02-18] MEDS ORDERED: INFLUENZA VACC TS2025-26(65y+)/PF (IIV3) 0.5mL Syr IM ONE (22:53)
[2025-02-18] MEDS ORDERED: PNEUMOCOCCAL VACCINE (PCV20) 20-VAL CONJ-DIP CRM/PF 0.5 ML SYR IM ONE (22:53)
[2025-02-19] MEDS: GADOBUTROL 65ML VIAL IV ONE (00:47)
--- NOTE | 2025-02-19 01:57 | Magnetic Resonance Report ---
EXAM: MR brain wo/w con CLINICAL HISTORY: stroke s/s TECHNIQUE: Multisequential and multiplanar images of the brain were submitted for review without and with contrast. COMPARISON: None. FINDINGS: Generalized parenchymal atrophy is appreciated. No focal parenchymal lesions are seen. No intracranial hemorrhage, mass effect, midline shift, extra-axial collection, or hydrocephalus is identified. The ventricles, sulci, and basal cisterns are symmetric and normal in size and configuration. Diffusion-weighted sequences show no evidence of acute ischemic infarction. No abnormal meningeal enhancement is seen. The midline structures, including the pituitary gland, corpus callosum, pineal region, and brainstem, are unremarkable. The craniovertebral junction is within normal limits. No calvarial abnormalities are identified. Mild mucosal thickening of the bilateral maxillary and ethmoidal sinuses is noted. The orbital structures are unremarkable. Appropriate flow voids are present in the visualized intracranial vessels. No enhancing mass or abnormality seen. IMPRESSION: 1. No acute ischemia, space-occupying mass, or other acute intracranial pathology is demonstrated. 2. Age-related cerebral atrophy. Electronically signed by Anthony Trujillo 02-19-2025 01:56 AM
[2025-02-19 07:31] LABS: Hematocrit (blood only) 37.6 % (42.0-52.0); Hemoglobin 12.3 g/dl (14.0-18.0); Immature Granulocytes # (auto) 0.02 K/uL (0.01-0.20); Immature Granulocytes % (auto) 0.5 %; Mean Corpuscular Hemoglobin 32.5 pg (25.0-34.0); Mean Corpuscular Volume 99.2 fL (80.0-100.0); Platelet Count 143 K/uL (130-400); RDW Standard Deviation 44.9 fL (36.4-46.3); Red Blood Count 3.79 M/uL (4.70-6.10); White Blood Count 3.87 K/ul (4.8-10.8)
[2025-02-19 07:52] LABS: Anion Gap 5.0 (3-11); Blood Urea Nitrogen 17.0 mg/dl (6-23); Calcium 9.4 mg/dl (8.6-10.3); Carbon Dioxide 33.0 mmol/L (21-32); Chloride 103.0 mmol/L (98-107); Cholesterol 159.0 mg/dl (0-200); Creatinine Clr Calc Pharmacy 47.4 ml/min; Glucose 96.0 mg/dl (70-99(Fasting)); HDL Cholesterol 44.0 mg/dl; Potassium 4.0 mmol/L (3.5-5.1); Sodium 141.0 mmol/L (136-145); Triglycerides 86.0 mg/dl (0-150)
[2025-02-19] MEDS: ASPIRIN 81 MG ECTAB PO SCH (09:11)
[2025-02-19] MEDS: LORATADINE 10 MG TAB PO SCH (09:12)
[2025-02-19] MEDS: TAMSULOSIN HCL 0.4 MG CAP PO SCH (09:12)
[2025-02-19] MEDS: FINASTERIDE 5 MG TAB PO SCH (09:12)
[2025-02-19] MEDS: ADVANCED PROBIOTIC 625 MG CAPSULE PO SCH (09:12)
[2025-02-19] MEDS: ROSUVASTATIN CALCIUM 10 MG TAB PO SCH (09:12)
[2025-02-19] MEDS: VIBEGRON 75 MG TAB PO SCH (09:12)
[2025-02-19] MEDS: POLYETHYLENE (MIRALAX) 17 GM PACK PO SCH (09:18)
[2025-02-19 09:40] VITALS: RESP 18
[2025-02-19 10:30] LABS: Hemoglobin A1C 5.8 % (4.5-5.6)
--- NOTE | 2025-02-19 12:13 | XCELERA ---
[id number]
[2025-02-19 12:49] VITALS: BP 136/74; TEMP 98.4; O2SAT 91
[2025-02-19] MEDS ORDERED: STROKE PATIENT DISCHARGE STA (12:55)
--- NOTE | 2025-02-19 12:55 | Neurology Consultation ---
Date of Consultation February 19, 2025 Assessment & Plan (1) TIA (transient ischemic attack): The transient ischemic attack occurred as the patient was off of his rivaroxaban for 2 days in anticipation of EGD. I did advise the patient to limit time off of his medication as he has shown that he is likely to clot quickly. Recurrent clot could be a full stroke not just a TIA. I did advise the patient's family to discuss with his GI physician prior to discontinuing rivaroxaban again. If the EGD is urgent, it can be rescheduled. If it is not urgent, would recommend to wait 1 month to reschedule. -continue home rivaroxaban 20 mg daily - no need to add aspirin at this time as symptoms occurred while not on rivaroxaban - increase home rosuvastatin to 20 mg daily -follow up in Neurology Clinic -patient is family were to present to Emergency Department immediately should he develop any acute stroke symptoms such as facial droop, trouble speaking or understanding, unilateral weakness, numbness, or paresthesias, severe onset headache, dizziness, or visual deficits I discussed my recommendations with Dr. Stu Georges. Thank you for this consult. Please call with questions. Telehealth Consultation Telehealth Information Telehealth Information: I performed this visit using a real-time telehealth connection between my location and the patients originating location ([facility]). After connecting through interactive tele-video, patient was identified by name and date of and/or wristband check.Patient (or authorized healthcare malt liquors sales representative) was informed that this was a telemedicine visit and it was being conducted confidentially over secure lines. My office door was closed and no one else was present in the room with me.Patient (or authorized healthcare re presentative) provided consent to proceed with the visit, expressed an understanding of privacy and security of the telemedicine visit, and gave permission to have a hospital malt liquors sales representative in the room in order to assist with the visit and to conduct portions of the visit, as needed. I informed the patient (or authorized healthcare malt liquors sales representative) that I reviewed their record and presented the opportunity for them to ask any questions regarding the visit today. The patient agreed to participate. History of Present Illness Reason for Consultation: Transient ischemic attack Attending Physician: Stu Georges MD History of Present Illness Timo Miranda is an 84 year old male with PMH significant for hypertension, hyperlipidemia, diabetes mellitus type 2, obstructive sleep apnea, atrial fibrillation on rivaroxaban, laryngopharyngeal reflux disease, valvular heart disease, enlargement of abdominal aorta, ascending aorta dilation, BPH, constipation, and anxiety who presents to the [facility] Emergency Department on 02/18/2025 with dysarthria. I saw and examined the patient at bedside. His and son are present for the encounter. Per report, the patient normally takes rivaroxaban but he had been off for 2 days as he was awaiting EGD which was supposed to be done on 02/19/2025 for further workup of his laryngeal pharyngeal reflux disease. NIHSS is 0. MRI brain 02/19/[address] angiogram head and neck was unremarkable. patient had a transthoracic echocardiogram on 02/01/2025 at [facility] which revealed LVEF 60- 65%, severely enlarged left atrium, moderately enlarged right atrium, no interatrial shunt, atrial septal defect, no patent foramen ovale, no ventricular septal defect, no thrombus mentioned. Allergies Allergy/AdvReac Type Severity Reaction Status Date / Time adhesive tape Allergy Unknown Unknown Unverified 02/18/25 15:14 atorvastatin Allergy Unknown Unknown Unverified 02/18/25 15:14 Penicillins Allergy Unknown Unknown Unverified 02/18/25 15:14 Home Medications Medication Instructions Recorded Confirmed Type Probiotic 1 cap PO DAILY 02/18/25 02/18/25 History buspirone 5 mg tablet 5 mg PO BID 02/18/25 02/18/25 History diltiazem HCl 240 mg capsule,24 240 mg PO DAILY 02/18/25 02/18/25 History hr,extended release (Tiadylt ER) diphenhydramine 25 1 tab PO HS 02/18/25 02/18/25 History mg-acetaminophen 500 mg tablet (Tylenol PM Extra Strength) dutasteride 0.5 mg capsule 0.5 mg PO DAILY 02/18/25 02/18/25 History famotidine 40 mg tablet 40 mg PO HS 02/18/25 02/18/25 History furosemide 20 mg tablet 20 mg PO BID 02/18/25 02/18/25 History loratadine 10 mg tablet 10 mg PO DAILY 02/18/25 02/18/25 History lorazepam 0.5 mg tablet 0.5 mg PO TID PRN Anxiety 02/18/25 02/18/25 History melatonin 10 mg tablet 10 mg PO HS 02/18/25 02/18/25 History metformin 500 mg tablet 500 mg PO BID 02/18/25 02/18/25 History mirabegron 25 mg tablet,extended 25 mg PO DAILY 02/18/25 02/18/25 History release 24 hr (Myrbetriq) omeprazole 40 mg capsule,delayed 40 mg PO BID 02/18/25 02/18/25 History release polyethylene glycol 3350 17 17 g PO DAILY 02/18/25 02/18/25 History gram/dose oral powder (Miralax) rivaroxaban 20 mg tablet (Xarelto) 20 mg PO DAILY 02/18/25 02/18/25 History rosuvastatin 5 mg tablet 10 mg PO DAILY 02/18/25 02/18/25 History tamsulosin 0.4 mg capsule 0.4 mg PO DAILY 02/18/25 02/18/25 History tobramycin 0.3 %-dexamethasone 0.1 0 drp OPL TID 02/18/25 02/18/25 History % eye drops,suspension rivaroxaban 15 mg tablet (Xarelto) 15 mg PO DAILY@1600 #30 tabs 02/19/25 Rx rosuvastatin 20 mg tablet 20 mg PO DAILY #30 tabs 02/19/25 Rx Patient History Medical History (Updated 02/19/25 @ 12:51 by Hattie Pitt MD) Anxiety Sensorineural hearing loss of both ears Degenerative joint disease BPH (benign prostatic hyperplasia) Constipation Infrarenal abdominal aortic aneurysm (AAA) without rupture Right bundle branch block Coronary artery calcification Mitral regurgitation Tricuspid regurgitation Atrial septal aneurysm Hypertension Atrial flutter Chronic atrial fibrillation Ascending aorta dilation Enlargement of abdominal aorta Aortic valve sclerosis Laryngopharyngeal reflux disease ROBBY on CPAP Dyslipidemia Type 2 diabetes mellitus Surgical History (Updated 02/18/25 @ 16:01 by SANFORD Frank) History of tonsillectomy History of cataract surgery History of colonoscopy Social History Smoking Status: Former smoker Hx Alcohol Use: No Hx Substance Use: No Preferred Language: Amharic Communication Ability: Effective Self Pay Collector Required: No Beliefs That Will Affect Care: None Current Living Situation: Spouse Other Information That Helps Us Care for You: No Feels Safe at Home: Yes Safety Concerns: Feels Safe At This Time Assistive Devices: CPAP, Hearing Aid - Bilateral and Oxygen - at Night Review of Systems ROS reviewed and negative except as above Physical Exam Physical Exam General Constitutional: Appearance normally developed Head and face: normocephalic and atraumatic Eyes: no ptosis, no anisocoria, and no dysconjugate gaze Respiratory: normal effort Cardiovascular: regular rhythm and regular rate Abdomen: non distended Skin: no rashes, lesions, or ulcers noted Psychiatric: normal judgement and insight, normal mood, and normal affect NEUROLOGIC EXAMINATION: Mental Status: alert, oriented to time, place, person, normal attention span, normal concentration, normal language and normal fund of knowledge Cranial Nerves: CN 2 - no visual defect on confrontation and pupils round, equal, reactive to light CN 3, 4, 6 - extra-ocular movements intact and no nystagmus CN 5 - facial sensation intact CN 7 - no facial asymmetry CN 8 - intact hearing CN 9, 10 - not assessed CN 11 - good shoulder shrug CN 12 - tongue midline MOTOR: Strength was at least antigravity throughout, Pronator drift was absent and there were no abnormal movements SENSATION: intact and symmetric to light touch GAIT: not assessed COORDINATION: no ataxia with finger to nose testing and heel to barker testing REFLEXES: cannot assess over telemedicine NIH Stroke Scale: 1a. Level of Consciousness: alert = 0 1b. LOC Questions: (month, age): both correct = 0 1c. LOC Commands (open and close eyes, make fist and let go using non-paretic hand): obeys both correctly = 0 2. Best Gaze (eyes open and patient follows examiner's finger or face): normal = 0 3. Visual (visual threat or finger counting in each quadrant): no loss = 0 4. Facial Palsy (show teeth, raise eye brows and squeeze eyes shut, or grimace symmetry in a comatose patient): normal = 0 5a. Motor Arm (extend arm (palms down) to 90 degrees and score drift/movement (10 seconds) - Left: no drift = 0 5b. Motor Arm: (extend arm (palms down) to 90 degrees and score drift/movement (10 seconds) - Right: no drift = 0 6a. Motor Leg (elevate leg 30 degrees and score drift/ movement (5 seconds) - Left: no drift = 0 6b. Motor Leg (elevate leg 30 degrees and score drift/ movement (5 seconds) - Right: no drift = 0 7. Limb Ataxia (finger to nose, heel down barker): absent = 0 8. Sensory (pin prick to face, arm, trunk and leg, compare side to side): normal = 0 9. Best Language: no aphasia = 0 10. Dysarthria (evaluate speech clarity by patient repeating listed words): normal articulation = 0 11. Extinction and Inattention: no neglect = 0 Total: 0 Results & Data Vital Signs (Past 12 Hours) Vital Signs Temp Pulse Resp BP BP Pulse Ox O2 Del Method 02/19/25 07:57 36.4 C L 60 18 148/64 H 92 Room Air 02/19/25 04:05 36.5 C 75 16 153/84 H 97 CPAP 02/19/25 02:13 O2 Flow Rate 02/19/25 07:57 02/19/25 04:05 02/19/25 02:13 2 Laboratory Results 02/19/25 02/19/25 02/19/25 12:27 08:37 06:38 WBC 3.87 L RBC 3.79 L Hgb 12.3 L Hct 37.6 L MCV 99.2 MCH 32.5 MCHC 32.7 RDW Std Deviation 44.9 RDW Coeff of Kam 12.4 Plt Count 143 MPV 10.1 Immature Gran % (Auto) 0.5 Neut % (Auto) 64.0 Lymph % (Auto) 23.3 [place] % (Auto) 11.1 Eos % (Auto) 0.8 Baso % (Auto) 0.3 Neut # (Auto) 2.48 Lymph # (Auto) 0.90 L [place] # (Auto) 0.43 Eos # (Auto) 0.03 Baso # (Auto) 0.01 Immature Gran # (Auto) 0.02 PT INR APTT PTT Ratio Sodium 141 Potassium 4.0 Chloride 103 Carbon Dioxide 33 H Anion Gap 5 BUN 17 Creatinine 1.25 Est Cr Clr Drug Dosing 47.4 eGFR 56.43 BUN/Creatinine Ratio 13.6 Glucose 96 POC Glucose 107 H 102 H Estimat Average Glucose 120 Hemoglobin A1c 5.8 H Calcium 9.4 Magnesium Total Bilirubin AST ALT Alkaline Phosphatase Troponin I High Sens Total Protein Albumin Globulin Albumin/Globulin Ratio Triglycerides 86 Cholesterol 159 LDL Cholesterol, Calc 98 VLDL Cholesterol, Calc 17 HDL Cholesterol 44 Cholesterol/HDL Ratio 3.6 02/18/25 02/18/25 02/18/25 20:18 19:36 12:33 WBC 4.90 RBC 3.81 L Hgb 12.4 L Hct 37.9 L MCV 99.5 MCH 32.5 MCHC 32.7 RDW Std Deviation 45.3 RDW Coeff of Kam 12.4 Plt Count 145 MPV 9.8 Immature Gran % (Auto) 0.4 Neut % (Auto) 74.1 Lymph % (Auto) 15.1 [place] % (Auto) 9.6 Eos % (Auto) 0.6 Baso % (Auto) 0.2 Neut # (Auto) 3.63 Lymph # (Auto) 0.74 L [place] # (Auto) 0.47 Eos # (Auto) 0.03 Baso # (Auto) 0.01 Immature Gran # (Auto) 0.02 PT 11.2 INR 1.1 APTT 27 PTT Ratio 1.0 Sodium 140 Potassium 4.0 Chloride 102 Carbon Dioxide 30 Anion Gap 8 BUN 21 Creatinine 1.23 Est Cr Clr Drug Dosing 48.2 eGFR 57.53 BUN/Creatinine Ratio 17.1 Glucose 85 POC Glucose 155 H 129 H Estimat Average Glucose Hemoglobin A1c Calcium 9.4 Magnesium 2.0 Total Bilirubin 0.7 AST 14 ALT 9 Alkaline Phosphatase 69 Troponin I High Sens 6.4 Total Protein 6.8 Albumin 4.0 Globulin 2.8 Albumin/Globulin Ratio 1.4 Triglycerides Cholesterol LDL Cholesterol, Calc VLDL Cholesterol, Calc HDL Cholesterol Cholesterol/HDL Ratio Diagnostic Findings Head CT 02/18/25 12:35 IMPRESSION: No acute intracranial findings. Electronically signed by: Eliezer Daily M.D. 02/18/2025 12:57 PM Head CTA 02/18/25 12:35 IMPRESSION: 1. No evidence of aneurysm. No evidence of major intracranial branch occlusion. Electronically signed by: Eliezer Daily M.D. 02/18/2025 1:01 PM Neck CTA 02/18/25 12:35 IMPRESSION: 1. Unremarkable CT angiogram of the neck. Electronically signed by: Storm Mckenna M.D. 02/18/2025 1:01 PM Brain MRI 02/18/25 14:50 IMPRESSION: 1. No acute ischemia, space-occupying mass, or other acute intracranial pathology is demonstrated. 2. Age-related cerebral atrophy. Electronically signed by Anthony Trujillo 02-19-2025 01:56 AM Medications Administered Home Medications Medication Instructions Recorded Confirmed Last Taken Probiotic 1 cap PO DAILY 02/18/25 02/18/25 Unknown buspirone 5 mg tablet 5 mg PO BID 02/18/25 02/18/25 Unknown diltiazem HCl 240 mg capsule,24 240 mg PO DAILY 02/18/25 02/18/25 Unknown hr,extended release (Tiadylt ER) diphenhydramine 25 1 tab PO HS 02/18/25 02/18/25 Unknown mg-acetaminophen 500 mg tablet (Tylenol PM Extra Strength) dutasteride 0.5 mg capsule 0.5 mg PO DAILY 02/18/25 02/18/25 Unknown famotidine 40 mg tablet 40 mg PO HS 02/18/25 02/18/25 Unknown furosemide 20 mg tablet 20 mg PO BID 02/18/25 02/18/25 Unknown loratadine 10 mg tablet 10 mg PO DAILY 02/18/25 02/18/25 Unknown lorazepam 0.5 mg tablet 0.5 mg PO TID PRN Anxiety 02/18/25 02/18/25 Unknown melatonin 10 mg tablet 10 mg PO HS 02/18/25 02/18/25 Unknown metformin 500 mg tablet 500 mg PO BID 02/18/25 02/18/25 Unknown mirabegron 25 mg tablet,extended 25 mg PO DAILY 02/18/25 02/18/25 Unknown release 24 hr (Myrbetriq) omeprazole 40 mg capsule,delayed 40 mg PO BID 02/18/25 02/18/25 Unknown release polyethylene glycol 3350 17 17 g PO DAILY 02/18/25 02/18/25 Unknown gram/dose oral powder (Miralax) rivaroxaban 20 mg tablet (Xarelto) 20 mg PO DAILY 02/18/25 02/18/25 Unknown rosuvastatin 5 mg tablet 10 mg PO DAILY 02/18/25 02/18/25 Unknown tamsulosin 0.4 mg capsule 0.4 mg PO DAILY 02/18/25 02/18/25 Unknown tobramycin 0.3 %-dexamethasone 0.1 0 drp OPL TID 02/18/25 02/18/25 Unknown % eye drops,suspension Active Medications Generic Name Dose Route Start Last Admin Trade Name Freq PRN Reason Stop Dose Admin Acetaminophen 500 mg 02/18/25 21:00 02/18/25 20:14 Acetaminophen 500 Mg Tab PO 03/20/25 20:59 500 mg HS KEVIN Administration Buspirone HCl 5 mg 02/18/25 21:00 02/19/25 09:11 Buspirone 5 Mg Tab PO 03/20/25 20:59 5 mg BID KEVIN Administration Diltiazem HCl 240 mg 02/19/25 09:00 02/19/25 09:12 Diltiazem Hcl 240 Mg Capcr PO 03/21/25 08:59 240 mg DAILY KEVIN Administration Diphenhydramine HCl 25 mg 02/18/25 21:00 02/18/25 20:08 Diphenhydramine Capsule 25 Mg Cap PO 03/20/25 20:59 25 mg HS KEVIN Administration Famotidine 40 mg 02/18/25 21:00 02/18/25 20:08 Famotidine 40 Mg Tablet PO 03/20/25 20:59 40 mg HS KEVIN Administration Finasteride 5 mg 02/19/25 09:00 02/19/25 09:12 Finasteride 5 Mg Tab PO 03/21/25 08:59 5 mg DAILY KEVIN Administration Protocol Insulin Aspart 0 units 02/18/25 19:00 02/19/25 09:11 Insulin Aspart Per Unit Charge SC 03/20/25 18:59 Not Given ACHS KEVIN Lactobacillus Acidophilus 1,250 mg 02/19/25 09:00 02/19/25 09:12 Advanced Probiotic 625 Mg Capsule PO 03/21/25 08:59 1,250 mg DAILY KEVIN Administration Loratadine 10 mg 02/19/25 09:00 02/19/25 09:12 Loratadine 10 Mg Tab PO 03/21/25 08:59 10 mg DAILY KEVIN Administration Lorazepam 0.5 mg 02/18/25 18:46 02/19/25 10:05 Lorazepam 0.5 Mg Tab PO 03/20/25 18:45 0.5 mg TID PRN Administration Anxiety Melatonin 9 mg 02/18/25 21:00 02/18/25 20:09 Melatonin 3 Mg Tab PO 03/20/25 20:59 9 mg HS KEVIN Administration Protocol Pantoprazole Sodium 40 mg 02/18/25 21:00 02/19/25 09:12 Pantoprazole 40 Mg Tab PO 03/20/25 20:59 40 mg BID KEVIN Administration Protocol Polyethylene Glycol 17 gm 02/19/25 09:00 02/19/25 09:18 Polyethylene (Miralax) 17 Gm Pack PO 03/21/25 08:59 17 gm DAILY KEVIN Administration Tamsulosin HCl 0.4 mg 02/19/25 09:00 02/19/25 09:12 Tamsulosin Hcl 0.4 Mg Cap PO 03/21/25 08:59 0.4 mg DAILY KEVIN Administration Vibegron 75 mg 02/19/25 09:00 02/19/25 09:12 Vibegron 75 Mg Tab PO 03/21/25 08:59 75 mg DAILY KEVIN Administration Protocol
--- NOTE | 2025-02-19 13:03 | Discharge Summary ---
Date of Service February 19, 2025 Admission HPI Per Admitting Provider 84 year old male with PMH significant for type 2 diabetes, dyslipidemia, ROBBY on CPAP, laryngopharyngeal reflux disease, chronic a fib, valvular heart disease, enlargement of abdominal aorta, ascending aorta dilation, hypertension, BPH, constipation, and anxiety who presents to the ED on 02/18/2025 with slurred speech. Patient reports that he was going to the [employer] this morning at 1100 to get new hearing aids when he suddenly felt off balance and "wobbly" getting out of the car. He was able to get through the appointment and then when he got up to leave, he had a similar sensation of off balance. Denies near syncope or syncope. He then developed dysarthria and slurred speech where he describes that he knows what he was trying to say but could not get the words out. [facility] and [facility] brought [facility] for evaluation. By the time he arrived to the ED, his speech normalized. He continues to have waxing and waning expressive aphasia for about 5-10 min at a time every 10-20 minutes. Patient f eels completely fine otherwise. Denies headache, blurry vision, unilateral weakness, chest pain, SOB, abdominal pain, N/V/D. He notes that he did not take his Xarelto (for A fib) last evening because he is supposed to have an EGD with dilation tomorrow at [facility]. Admission Exam Per Admitting Provider pt is able to answer questions appropriately, he is awake, and alert. Heart sounds irregular. Lung sounds clear. Abdomen soft nontender. No LE edema, and pt is able to move all extremities without any difficulty or weakness noted. Pt denies any numbness or tingling. Cranial nerves checked at the bedside and intact. Principal Diagnosis likely TIA Discharge Exam GENERAL: Alert and oriented x3. NAD, on RA. HEENT: No pallor, no icterus. Pupils equal, round and reactive to light. Oral mucosa moist. NECK: No JVD, no neck masses. HEART: S1 and S2 heard. Regular rate and rhythm. No murmur, no gallop. RESPIRATORY SYSTEM: Normal AP diameter. No accessory muscle use. No wheezing, no crackles. ABDOMEN: Soft, bowel sounds present, nontender, no distention. CENTRAL NERVOUS SYSTEM: No facial droop. Speech is clear. Obeys simple commands. Moves extremities. EXTREMITIES: No edema, no erythema seen. Discharge Data Allergies Allergy/AdvReac Type Severity Reaction Status Date / Time adhesive tape Allergy Unknown Unknown Unverified 02/18/25 15:14 atorvastatin Allergy Unknown Unknown Unverified 02/18/25 15:14 Penicillins Allergy Unknown Unknown Unverified 02/18/25 15:14 Consultations 02/18/25 14:30 ED Decision to Admit Stat 02/18/25 14:57 Consult Neurology Routine Ordered Studies 02/18/25 12:35 CT angio head w con Stat CT angio neck with con Stat CT head/brain wo con Stat 02/18/25 14:50 MRI Brain [MR brain wo/w con] Urgent Hospital Course (1) Dysarthria: (2) Type 2 diabetes mellitus: (3) Valvular heart disease: (4) Dyslipidemia: (5) ROBBY on CPAP: (6) Laryngopharyngeal reflux disease: (7) Chronic atrial fibrillation: (8) Hypertension: (9) Infrarenal abdominal aortic aneurysm (AAA) without rupture: (10) BPH (benign prostatic hyperplasia): (11) Anxiety: Plan Per prior attending w/ addendum: 84 year old male with PMH significant for type 2 diabetes, dyslipidemia, ROBBY on CPAP, laryngopharyngeal reflux disease, chronic a fib, valvular heart disease, enlargement of abdominal aorta, ascending aorta dilation, hypertension, BPH, constipation, and anxiety who presents to the ED on 02/18/2025 with slurred speech. Dysarthria Stroke vs TIA Patient presenting with dysarthria and expressive aphasia that is waxing/waning Head CT, head CTA, neck CTA all unremarkable Received ASA in ED MRI ordered Consult neurology: appreciate recs Obtain echo (TTE earlier this month revealed LVEF 60-64%, RV mod dilation, LA severe enlargement, RA mod enlargement, diastolic dysfunction, mild aortic valve sclerosis, mild MR, mild TR, mod MI, mild enlargement of aortic root and proximal ascending aorta) PT/OT/ST evals A1C and lipid panel in am Monitor on telemetry Type 2 diabetes Hold home metformin BSG ACHS and SSI while inpatient Chronic atrial fibrillation Rate controlled Continue Xarelto and diltiazem Hypertension Continue lasix Dyslipidemia Continue rosuvastatin ROBBY on CPAP CPAP HS Esophageal dysphagia LPRD Follows with [facility] Was supposed to have EGD with dilation at [facility] tomorrow-> will need rescheduled Continue PPI and pepcid AAA Follows with [facility] Stable under surveillance with yearly ultrasound BPH Continue dutasteride and tamsulosin Anxiety Continue buspirone and ativan PRN DVT Prophylaxis:on Xarelto Code Status: DNR/DNI - As per discussion at bedside with the patient. PCP: Shelbie Welch Disposition: [facility] Addendum 02/19/2025: Patient was seen and examined at bedside as a follow-up of dysarthria/balance issues/TIA. Head and neck imagings reviewed with no acute finding. Echo with no intra-atrial shunt noted. Patient reports resolution of his balance issues and dysarthria. Neurology evaluated, recommends anticoagulation with Xarelto, no need for aspirin, recommends a statin. Patient to follow-up with neurology upon discharge. and son were at bedside were also updated on plan of care. Patient is hemodynamically stable. Patient is being discharged with following instructions at the point of discharge: Follow-up with your primary care physician within a week time and likely you w ill need labs CBC/CMP/magnesium/phosphorus. You were evaluated for possible stroke, neurology evaluated you, follow-up with neurology in 1 to 2 months time upon discharge. Neurology recommends that you wait at least 1 month to reschedule your EGD if not urgent, coordinate with your GI physician. Continue to take your Xarelto, your Xarelto dose has been adjusted down based on your kidney function. Continue to follow-up with your primary care for long- term monitoring on your Xarelto dosing. Your rosuvastatin has been increased to 20 mg daily. Take your medications as prescribed. Please make sure that you are able to get your medications today by calling your pharmacy before you leave the hospital so that your treatment continuity is not broken. Home Health Attestation I certify that this patient is under my care and that I, or a physicians physician office assistant working with me, had a face to-face encounter that meets the home health [id number] encounter requirements with this patient. The encounter with the patient was in whole, or in part, for the following medical condition, which is the primary reason for home health care (list medical condition): I certify that, based on my findings, the following services are medically necessary home health services: My clinical findings support the need for the above services because: Further, I certify that my clinical findings support that this patient is homebound (i.e. absences from home require considerable and taxing effort and are for medical reasons or scientology services or infrequently or of short duration when for other reasons) because: Certification for Home Health Services: Based on the above findings, I certify that this patient is confined to the home and needs intermittent correction care, physical therapy and/or speech therapy or continues to need occupational therapy. The patient is under my care, and I have initiated the establishment of the plan of care. This patient will be followed by a physician who will periodically review the plan of care. Total Time Total Time Spent Total Time Spent (In Minutes): 45 Discharge Plan Discharge Items Patient Disposition: Home - Self-Care Reason For Visit: SLUIRRED SPEECH Discharge Diagnosis: Dysarthria Likely TIA Chronic A-fib on Xarelto Activity: Resume your previous activity Non-emergency contact: Primary Care Provider Call non-emergency contact if: you have any medication questions and your symptoms worsen Follow-up/Referrals: Shelbie Welch M.D. [Primary Care Provider] - 03/02/25 10:00 am Diet: Carb Consistent or DM2 Addtl Attending Provider Instructions: Follow-up with your primary care physician within a week time and likely you will need labs CBC/CMP/magnesium/phosphorus. You were evaluated for possible stroke, neurology evaluated you, follow-up with neurology in 1 to 2 months time upon discharge. Neurology recommends that you wait at least 1 month to reschedule your EGD if not urgent, coordinate with your GI physician. Continue to take your Xarelto, your Xarelto dose has been adjusted down based on your kidney function. Continue to follow-up with your primary care for long- term monitoring on your Xarelto dosing. Your rosuvastatin has been increased to 20 mg daily. Take your medications as prescribed. Please make sure that you are able to get your medications today by calling your pharmacy before you leave the hospital so that your treatment continuity is not broken. Pending Studies at Discharge: No Stand-Alone Forms: [employer], Smoking Cessation, Medications to Prevent Stroke Medications and DC Order Prescriptions: New Xarelto 15 mg Tablet 15 mg PO DAILY@1600 Qty: 30 0RF rosuvastatin 20 mg Tablet 20 mg PO DAILY Qty: 30 0RF Continued buspirone 5 mg tablet 5 mg PO BID metformin 500 mg tablet 500 mg PO BID famotidine 40 mg tablet 40 mg PO HS diltiazem HCl [Tiadylt ER] 240 mg capsule,extended release 24hr 240 mg PO DAILY omeprazole 40 mg capsule,delayed release(DR/EC) 40 mg PO BID lorazepam 0.5 mg tablet 0.5 mg PO TID PRN (Reason: Anxiety) tamsulosin 0.4 mg capsule 0.4 mg PO DAILY furosemide 20 mg tablet 20 mg PO BID tobramycin-dexamethasone 0.3-0.1 % drops,suspension 0 drp OPL TID Patient Comments: 02/18- not on faxed list; filled 02/12 dutasteride 0.5 mg capsule 0.5 mg PO DAILY mirabegron [Myrbetriq] 25 mg tablet extended release 24 hr 25 mg PO DAILY polyethylene glycol 3350 [Miralax] 17 gram/dose Powder 17 g PO DAILY diphenhydramine-acetaminophen [Tylenol PM Extra Strength] 25-500 mg Tablet 1 tab PO HS loratadine 10 mg Tablet 10 mg PO DAILY melatonin 10 mg Tablet 10 mg PO HS Probiotic 1 cap PO DAILY Discontinued Xarelto 20 mg tablet 20 mg PO DAILY rosuvastatin 5 mg tablet 10 mg PO DAILY Discharge Orders: Discharge Order (Routine); Ordered 02/19/25 Ordered By: Stu Georges Admission Data Admit Date/Time: 02/18/25 15:56 Attending Provider: Stu Georges Admit Provider: Diego Denis Primary Care Provider: Shelbie Welch Other Providers: Diego Denis; Hattie Pitt; [facility]
[2025-02-19 13:22] VITALS: PULSE 82
[2025-02-19] MEDS ORDERED: RIVAROXABAN 15 MG TAB PO SCH (16:00)
[2025-02-20] MEDS ORDERED: ROSUVASTATIN CALCIUM 20 MG TAB PO SCH (09:00)
--- NOTE | 2025-02-24 12:28 | Pharmacy Report ---
Pharmacist Stroke Counseling - Date of Service February 24, 2025 - Scope: Pharmacy has been consulted to provide medication discharge counseling for this patient admitted with ischemic transient ischemic attack as per the Pharmacist Discharge Counseling for Stroke Patients Protocol. - Medications on Discharge: Home Medications Medication Instructions Recorded Confirmed Probiotic 1 cap PO DAILY 02/18/25 02/18/25 buspirone 5 mg tablet 5 mg PO BID 02/18/25 02/18/25 diltiazem HCl 240 mg capsule,24 240 mg PO DAILY 02/18/25 02/18/25 hr,extended release (Tiadylt ER) diphenhydramine 25 1 tab PO HS 02/18/25 02/18/25 mg-acetaminophen 500 mg tablet (Tylenol PM Extra Strength) dutasteride 0.5 mg capsule 0.5 mg PO DAILY 02/18/25 02/18/25 famotidine 40 mg tablet 40 mg PO HS 02/18/25 02/18/25 furosemide 20 mg tablet 20 mg PO BID 02/18/25 02/18/25 loratadine 10 mg tablet 10 mg PO DAILY 02/18/25 02/18/25 lorazepam 0.5 mg tablet 0.5 mg PO TID PRN Anxiety 02/18/25 02/18/25 melatonin 10 mg tablet 10 mg PO HS 02/18/25 02/18/25 metformin 500 mg tablet 500 mg PO BID 02/18/25 02/18/25 mirabegron 25 mg tablet,extended 25 mg PO DAILY 02/18/25 02/18/25 release 24 hr (Myrbetriq) omeprazole 40 mg capsule,delayed 40 mg PO BID 02/18/25 02/18/25 release polyethylene glycol 3350 17 17 g PO DAILY 02/18/25 02/18/25 gram/dose oral powder (Miralax) tamsulosin 0.4 mg capsule 0.4 mg PO DAILY 02/18/25 02/18/25 tobramycin 0.3 %-dexamethasone 0.1 0 drp OPL TID 02/18/25 02/18/25 % eye drops,suspension New Rx's Medication Instructions Recorded rivaroxaban 15 mg tablet (Xarelto) 15 mg PO DAILY@1600 #30 tabs 02/19/25 rosuvastatin 20 mg tablet 20 mg PO DAILY #30 tabs 02/19/25 - Action: The above medications, specifically ones for stroke treatment/prophylaxis, have been reviewed in detail with the patient's over the phone post-discharge. This includes indication, common adverse reactions, drug interactions, and medication administration. Medication counseling has been employed using the teach-back method to ensure understanding. - Outcome: The patient's has demonstrated understanding of the medications. Received new Rxs for rivaroxaban 15mg and rosuvastatin 20mg. Additional comments: Spoke with patient's as patient is hard of hearing. grateful for our phone call and [facility]. Asked about Aspirin - notified her that neuro recommended no aspirin at this time so that is why it was not prescribed on discharge. Thank you for allowing pharmacy to be involved in the care of this patient. Please call [phone] with any additional questions
== END 2025-02-19 13:51 | disposition home or self-care (01) | DRG 69 ==
LOC: ED 12:14 → 2W 15:56 → SUATTDRO 15:56 → 2W 18:13